=== PATIENT | male | born 1995 | race African-American/Black ===

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

== ENCOUNTER 2021-11-15 15:53 | Emergency (ER) | payer SELFPAY ==
[~2021-11-15] VITALS: Ht 190.5 cm; Wt 103.0 kg
[2021-11-15 16:41] VITALS: BP 136/54
[2021-11-15] MEDS ORDERED: IBUP-2029 MT (17:19)
[2021-11-15] MEDS ORDERED: VALA100044 MT (17:19)
== END 2021-11-15 17:31 | disposition home or self-care (01) ==
LOC: ER 15:53
DX: B02.9 Zoster without complications (principal); R21 Rash and other nonspecific skin eruption; L29.9 Pruritus, unspecified
CPT/HCPCS: 99281; 99283

== ENCOUNTER 2021-12-20 01:24 | Emergency (ER) | payer SELFPAY ==
[~2021-12-20] VITALS: Ht 190.5 cm; Wt 105.6 kg
[~2021-12-20 01:24] MED LIST: IBUP-2029 MT; VALA100044 MT
[2021-12-20] MEDS ORDERED: METHOCARBAMOL 500MG TABLET PO ONE (03:30)
[2021-12-20] MEDS ORDERED: KETOROLAC 60MG/2ML VIAL IM ONE (03:30)
[2021-12-20 03:58] VITALS: BP 152/72
[2021-12-20] MEDS ORDERED: NAPR-681 MT (04:52)
[2021-12-20] MEDS ORDERED: METH-773 MT (04:52)
== END 2021-12-20 05:16 | disposition home or self-care (01) ==
LOC: ER 01:34
DX: S39.012A Strain of muscle, fascia and tendon of lower back, initial encounter (principal); V49.49XA Driver injured in collision with other motor vehicles in traffic accident, initial encounter; Y93.89 Activity, other specified; Y92.89 Other specified places as the place of occurrence of the external cause; Y99.8 Other external cause status
CPT/HCPCS: 72131; 96372; 99284; J1885